=== PATIENT | male | born 1965 | race Caucasian/White ===

== ENCOUNTER 2020-08-15 11:25 | Emergency (ER) | payer SELFPAY ==
--- NOTE | 2020-08-15 12:15 | EDM.PDOC ---
ED HPI GENERAL MEDICAL PROBLEM - General Chief Complaint: Upper Extremity Injury/Pain Stated Complaint: RIGHT RING FINGER INJURY Time Seen by Provider: 08/15/20 11:27 Source of Information: Reports: Patient History Limitations: Reports: No Limitations - History of Present Illness INITIAL COMMENTS - FREE TEXT/NARRATIVE: Patient is a 54 year old male presenting to the ER with c/o trigger finger to his right 4th finger. He states that this has been present for a few weeks. He denies any known injury to the hand. 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 He describes an area at proximal volar aspect of the finger that is tender if he pushes on it. He does not have a primary care provider and has not been evaluated for this previously. He mentions that he is out of his pain medications for his chronic, fibromyalgia pain as well. Right Finger-Ring Pain Score (Numeric/FACES): 8 - Related Data Allergies Allergy/AdvReac Type Severity Reaction Status Date / Time No Known Allergies Allergy Verified 08/15/20 11:47 Home Meds: Home Meds . [Unable to Verify Home Med List] 08/15/20 [History] Past Medical History Musculoskeletal History: Reports: Arthritis, Fibromyalgia, Neck Pain, Chronic Social & Family History - Tobacco Use Tobacco Use Status *Q: Unknown Ever Used Tobacco Review of Systems - Review of Systems Review Of Systems: See Below Constitutional: Reports: No Symptoms Eyes: Reports: No Symptoms Ears: Reports: No Symptoms Nose: Reports: No Symptoms Mouth/Throat: Reports: No Symptoms Respiratory: Reports: No Symptoms Cardiovascular: Reports: No Symptoms GI/Abdominal: Reports: No Symptoms Genitourinary: Reports: No Symptoms Musculoskeletal: Reports: Other (left 4th finger trigger finger) Skin: Reports: No Symptoms Neurological: Reports: No Symptoms Psychiatric: Reports: No Symptoms ED EXAM, GENERAL - Physical Exam Exam: See Below General Appearance: Alert, WD/WN, No Apparent Distress Respiratory/Chest: No Respiratory Distress, Lungs Clear, Normal Breath Sounds, No Accessory Muscle Use, Chest Non-Tender Cardiovascular: Normal Peripheral Pulses, Regular Rate, Rhythm, No Edema, No Gallop, No JVD, No Murmur, No Rub GI/Abdominal: Normal Bowel Sounds, Soft, Non-Tender, No Organomegaly, No Distention, No Abnormal Bruit, No Mass Extremities: Other (left 4th fingr trigger finger. No obvious deformity. C/o pain with attempted extension.) Psychiatric: Normal Affect, Normal Mood Skin Exam: Warm, Dry, Intact, Normal Color, No Rash Course - Vital Signs Last Recorded V/S: Last Vital Signs Temp 98.2 F 08/15/20 11:47 Pulse 95 08/15/20 11:47 Resp 16 08/15/20 11:47 BP 123/85 08/15/20 11:47 Pulse Ox 97 08/15/20 11:47 - Orders/Labs/Meds Orders: Active Orders 24 hr Category Date Time Status Hand Comp Min 3V Rt [CR] Stat Exams 08/15/20 12:08 Taken - Re-Assessments/Exams Free Text/Narrative Re-Assessment/Exam: Patient is a 54 year old male presenting to the ER with c/o a trigger finger to his left 4th finger. He denies any known injury to the finger. He has been having problems with this finger for the last few weeks. Discussed that treatment of a trigger finger is not a procedure offered in the ER. I have ordered an xray of the hand to rule out bony abnormalities. I will refer him to a hand specialist at [facility] in [place]. He also requested a referral to a PCP. Departure - Departure Time of Disposition: 13:04 Disposition: Home, Self-Care 01 Condition: Good Clinical Impression: Trigger finger of right hand Qualifiers: Trigger finger location: ring finger Qualified Code(s): M65.341 - Trigger finger, right ring finger - Discharge Information *PRESCRIPTION DRUG MONITORING PROGRAM REVIEWED*: No *COPY OF PRESCRIPTION DRUG MONITORING REPORT IN PATIENT MELANIE: No Instructions: Trigger Finger Referrals: Edin Diaz MD [Physician] - Silvia Winston NP [Nurse Practitioner] - Forms: ED Department Discharge, ED Return to Work/School Form Additional Instructions: You were seen in the emergency department today for evaluation of a trigger finger on your right hand. Xray was completed and showed no abormality which was to be expected. A referal has been send to Dr. Diaz, Orthopedist and [facility], Family Practice. Please call to schedule an appointment with Dr. Diaz for evaluation and treatment of your trigger finger and [facility] Mayer for primary care. In the mean time, you may tylenol and ibuprofen as needed for discomfort. Return to ER as needed. Sepsis Event Note (ED) - Evaluation Sepsis Screening Result: No Definite Risk - Focused Exam Vital Signs: Vital Signs Temp Pulse Resp BP Pulse Ox 08/15/20 11:47 98.2 F 95 16 123/85 97 - My Orders Last 24 Hours: My Active Orders 08/15/20 12:08 Hand Comp Min 3V Rt [CR] Stat - Assessment/Plan Last 24 Hours: My Active Orders 08/15/20 12:08 Hand Comp Min 3V Rt [CR] Stat
== END 2020-08-15 13:17 | disposition home or self-care (01) ==
LOC: JD.ED 11:25
DX: M65.341 Trigger finger, right ring finger (principal)
CPT/HCPCS: 73130-RT; 99283; 99283-25